=== PATIENT | male | born 1960 | race Caucasian/White ===

== ENCOUNTER 2021-03-12 02:30 | Emergency (ER) | payer OTHER ==
[~2021-03-12] VITALS: Ht 167.6 cm; Wt 59.0 kg
[2021-03-12] MEDS ORDERED: ACYCLOVIR 800800 MG PO (02:44)
[2021-03-12] MEDS ORDERED: ISENTRESS400 MG PO (02:44)
[2021-03-12] MEDS ORDERED: PREZCOBIX 8001 EACH PO (02:44)
[2021-03-12] MEDS ORDERED: NORVASC5 MG PO (02:45)
[2021-03-12] MEDS ORDERED: CRESTOR40 MG PO (02:45)
[2021-03-12] MEDS ORDERED: WIXELA 250-501 EACH INH (02:45)
[2021-03-12] MEDS ORDERED: AFRIN15 M1 NARES (03:00)
[2021-03-12 03:41] VITALS: BP 114/78
== END 2021-03-12 03:30 | disposition home or self-care (01) ==
LOC: ER 02:30
DX: R04.0 Epistaxis (principal); Z88.0 Allergy status to penicillin; Z79.899 Other long term (current) drug therapy; Z98.890 Other specified postprocedural states